=== PATIENT | female | born 1965 | race African-American/Black ===

== ENCOUNTER → 2017-08-23 | Day surgery (SDC) | payer OTHER ==
[~2017-08-23] VITALS: Ht 165.1 cm; Wt 143.3 kg
[~2017-08-23] MED LIST: ALBUTEROL0.09 MG/A1 INH; ASPIRIN CHILDRE81 MG PO; ASPIRIN EC81 M1 PO; ATORVASTATIN CA40 MG PO; AZITHROMYCIN250 M1 PO; Aspirin PO; DELTASONE20 MG PO; DILTIAZEM 24HR180 M1 PO; DUONEB 3 MG/3 ML3 ML INH/SOL; FLEXERIL10 MG PO; IPRAT-ALBUT 0.5-3 ML INH; K-DUR 20MEQ TA20 MEQ PO; K-TAB ER10 MEQ PO; LASIX40 M1 PO; LASIX40 MG PO; LIPITOR40 M1 PO; MECLIZINE HCL25 MG PO; NITROGLYCER0.4 MG/HR TOP; PERCOCET 325 MG1 TA2 PO; PERCOCET 5-3251 EACH PO; PLAVIX 75MG TAB75 MG PO; POTASSIUM CHLO20 ME2 PO; PREDNISONE 20MG20 MG PO; PROAIR HFA8.5 GM INH; Transderm Nitro 10MG (0.4 MG/Hr) Patch TOP; VENTOLIN1 PUF PO; VICODIN5-300 PO
--- NOTE | 2017-08-23 13:18 | Operative Report ---
Operative/Inv Procedure Report Surgery Date: 08/23/17 Name of Procedure: Laparoscopic Cholecystectomy Pre-Operative Diagnosis: Cholelithiasis/Cholecystitis, Morbid Obesity Post-Operative Diagnosis: Same Estimated Blood Loss: less than 50ml Surgeon/Civil Engineering Designer: Emory Eubanks DO Anesthesia: general endotracheal tube IV Fluids: 750 cc Drains: None Specimens: Gallbladder Complications: None Condition: Stable Operative Indication: This is a 52-year-old female that underwent an ultrasound revealed cholelithiasis. Patient is in the workup for bariatric surgery. She was complaining of on and off postprandial epigastric pain. A laparoscopic possible open cholecystectomy were discussed in detail. All risks including but not limited to bleeding, infection, bile leak, and injury to surrounding ducts/bowel were discussed in detail. The patient understood everything and sent to proceed. Operative/Procedure Note Note: The patient was brought to the operating room and placed on the operating room table in supine position. Venodyne stockings were placed and adequate general endotracheal anesthesia was obtained. The patient was prepped and draped in standard surgical fashion. We began the procedure by making a 2 cm transverse incision in the infraumbilical crease. The incision was carried down to the fascia, once the fascia was clearly visualized it was picked up between 2 josh clamps. The fascia was divided in the midline and once we entered the peritoneum 2 stay 0 Vicryl sutures were placed on each side. A 12 mm blunt port was inserted and the abdominal cavity was insufflated to 15 mmHg. A 10 mm 30 laparoscope was introduced and upon initial examination no obvious gross pathology was seen. We did note a distended gallbladder in the right upper quadrant. Accessory trocars were placed, all 5 mm, one in the epigastrium and 2 in the right upper quadrant (one in the midclavicular line and one in the anterior axillary line, both 2 fingerbreadths below the costal margin). The gallbladder was grasped with the lateralmost trocar and retracted up over the liver. Using the other 2 accessory trocars the infundibulum was grasped and the peritoneum was lysed using blunt dissection and using hook electrocautery. The cystic duct and cystic artery were visualized. The common bile duct was visualized and it was away from our area of dissection. The cystic duct and artery were skeletonized and divided between clips, 3 clips to stay and one clip on the gallbladder side for the duct and 2 clips to stay and one clip on the gallbladder side for the artery. The gallbladder was dissected off the liver bed using hook electrocautery maintaining hemostasis. Prior to completely removing the gallbladder off the liver bed we examined the area of dissection no obvious bile leak or bleeding was noted, the clips appeared to be in good position. The gallbladder was completely detached from the liver bed. We switched to a 5 mm laparoscope and a 10 mm Endobag was introduced through the umbilical trocar site. The gallbladder was placed in the bag and removed through the umbilicus. The abdomen was reinsufflated. We switched back to a 10 mm laparoscope and examined our area of dissection. No obvious bile leak or bleeding was noted. The right upper quadrant was irrigated until clear. All ports were removed under direct visualization, no obvious bleeding was noted. The umbilical trocar site was closed using 0 Vicryl suture. The skin was closed using 4-0 Monocryl. Steri-Strips and dressings were placed. The patient was successfully extubated and transferred to the recovery room in stable condition. The patient tolerated the procedure well with no complications. Findings: Distended gallbladder, multiple small and large stones, thick wall CC: Tyra MILIAN,Jesús Guerrero
== END ==
LOC: STS 02:39
DX: K80.10 Calculus of gallbladder with chronic cholecystitis without obstruction (principal); E66.01 Morbid (severe) obesity due to excess calories; Z68.43 Body mass index [BMI] 50.0-59.9, adult; I10 Essential (primary) hypertension; G47.33 Obstructive sleep apnea (adult) (pediatric)
CPT/HCPCS: 88304; C9399; J0131; J2250; J2405